=== PATIENT | male | born 1975 | race Two or more races ===

== ENCOUNTER 2017-04-09 09:22 | Emergency (ER) | payer MEDICAID ==
[~2017-04-09] VITALS: Ht 172.7 cm; Wt 149.2 kg
[2017-04-09 11:43] VITALS: BP 165/104
[2017-04-09] MEDS ORDERED: KETOROLAC TROMETH 60MG/2ML VIAL IM ONE (12:15)
== END 2017-04-09 12:44 | disposition home or self-care (01) ==
LOC: ER 09:22
DX: J34.1 Cyst and mucocele of nose and nasal sinus (principal); G44.009 Cluster headache syndrome, unspecified, not intractable
CPT/HCPCS: 70450; 93005; 96372; 99284; J1885

== ENCOUNTER 2017-09-24 04:49 | Emergency (ER) | payer MEDICAID ==
[~2017-09-24] VITALS: Ht 172.7 cm; Wt 154.2 kg
[2017-09-24 06:18] LABS: INR 1.02 (0.9-1.15); Partial Thromboplastin Time 28.9 sec (22.64-33.71); Prothrombin Time 11.1 sec (9.37-12.3)
[2017-09-24 06:28] LABS: Basophils # (auto) 0 uL; Basophils % (auto) 0.5 % (0.0-2.0); Eosinophils # (auto) 0.2 uL; Hematocrit 49.6 % (41.0-53.0); Hemoglobin 17.5 g/dL (13.5-17.5); Mean Corpuscular Hemoglobin 31.5 pg (28.0-32.0); Mean Corpuscular Hgb Conc. 35.3 g/dL (32.0-36.0); Mean Corpuscular Volume 89.1 fL (80.0-100.0); Monocytes # (auto) 0.6 uL; Monocytes % (auto) 9.8 % (0.0-12.0); Neutrophils # (auto) 3.5 uL; Neutrophils % (auto) 55.7 % (37.0-80.0); Nucleated Red Blood Cells % 0.3 %; Platelet Count (auto) 325 10^3/uL (140-450); Red Blood Cells 5.56 10^6/uL (4.5-5.90); Red Cell Distribution Width 13.2 % (11.8-14.3); White Blood Cell 6.3 10^3/uL (4.4-10.8)
[2017-09-24 06:29] LABS: Alanine Aminotransferase 51 U/L (16-61); Albumin 3.7 g/dL (3.4-5.0); Anion Gap 10 (5-15); Aspartate Aminotransferase 20 U/L (15-37); BUN/Creatinine Ratio 18.5; Blood Urea Nitrogen 15 mg/dL (7-18); Calcium 8.3 mg/dL (8.5-10.1); Carbon Dioxide 25 mmol/L (21-32); Chloride 106 mmol/L (98-107); GFR African American 134 mL/min; GFR Non-African American 111 mL/min; Glucose 112 mg/dL (74-106); Magnesium 2.1 mg/dL (1.6-2.6); Sodium 141 mmol/L (136-145)
[2017-09-24 06:34] LABS: Alkaline Phosphatase 61 U/L (45-117); Bilirubin, Total 0.4 mg/dL (0.2-1.0); Total Protein 7.8 g/dL (6.4-8.2)
[2017-09-24] MEDS ORDERED: LORazepam 0.5 MG TAB PO ONE ×2 (07:45)
[2017-09-24 08:22] VITALS: BP 142/92
== END 2017-09-24 11:03 | disposition home or self-care (01) ==
LOC: ER 04:49
DX: R07.89 Other chest pain (principal); R06.02 Shortness of breath; F17.210 Nicotine dependence, cigarettes, uncomplicated; R53.1 Weakness
CPT/HCPCS: 36415; 71046; 80053; 83735; 83880; 84484; 85025; 85610; 85730; 93005

== ENCOUNTER 2017-12-15 02:28 | Emergency (ER) | payer MEDICAID ==
[~2017-12-15] VITALS: Ht 172.7 cm; Wt 150.6 kg
[2017-12-15] MEDS ORDERED: cloNIDine HCL 0.1 MG TAB PO ONE (03:00)
[2017-12-15 03:24] LABS: Basophils # (auto) 0 uL; Basophils % (auto) 0.5 % (0.0-2.0); Eosinophils # (auto) 0.2 uL; Eosinophils % (auto) 3.2 % (0.0-7.0); Monocytes # (auto) 0.7 uL; Neutrophils # (auto) 4.1 uL
[2017-12-15 03:26] LABS: Hematocrit 51.4 % (41.0-53.0); Hemoglobin 17.9 g/dL (13.5-17.5); Lymphocytes # (auto) 2.5 uL; Lymphocytes % (auto) 33.2 % (10.0-50.0); Mean Corpuscular Hemoglobin 31.2 pg (28.0-32.0); Mean Corpuscular Hgb Conc. 34.7 g/dL (32.0-36.0); Mean Corpuscular Volume 89.8 fL (80.0-100.0); Neutrophils % (auto) 54.1 % (37.0-80.0); Nucleated Red Blood Cells % 0.1 %; Platelet Count (auto) 300 10^3/uL (140-450); Red Blood Cells 5.73 10^6/uL (4.5-5.90); White Blood Cell 7.6 10^3/uL (4.4-10.8)
[2017-12-15 03:41] LABS: Albumin 3.8 g/dL (3.4-5.0); BUN/Creatinine Ratio 16.5; Calcium 8.7 mg/dL (8.5-10.1); Potassium 4.2 mmol/L (3.5-5.1)
[2017-12-15 03:43] LABS: Bilirubin, Total 0.5 mg/dL (0.2-1.0); Total Protein 7.5 g/dL (6.4-8.2)
[2017-12-15 03:44] LABS: Alcohol, Urine < 3.0 mg/dL (0-5); Amphetamine Screen, Urine NEGATIVE (NEGATIVE); Barbiturate Scree,Urine NEGATIVE (NEGATIVE); Benzodiazephine Screen, Urine NEGATIVE (NEGATIVE); Cannabinoid Screen, Urine NEGATIVE (NEGATIVE); Cocaine Screen, Urine NEGATIVE (NEGATIVE); Opiate Scree,Urine NEGATIVE (NEGATIVE); Phencyclidine Screen, Urine NEGATIVE (NEGATIVE)
[2017-12-15 07:37] VITALS: BP 126/88
== END 2017-12-15 07:54 | disposition home or self-care (01) ==
LOC: ER 02:30
DX: I10 Essential (primary) hypertension (principal); E66.01 Morbid (severe) obesity due to excess calories; Z68.43 Body mass index [BMI] 50.0-59.9, adult
CPT/HCPCS: 36415; 70450; 80053; 80307; 83880; 84484; 85025; 93005

== ENCOUNTER 2018-01-04 03:41 | Emergency (ER) | payer MEDICAID ==
[~2018-01-04] VITALS: Ht 172.7 cm; Wt 158.8 kg
[2018-01-04] MEDS ORDERED: cloNIDine HCL 0.1 MG TAB ONE (03:49)
[2018-01-04] MEDS ORDERED: cloNIDine HCL 0.1 MG TAB PO ONE (04:15)
[2018-01-04 12:18] VITALS: BP 157/78
== END 2018-01-04 12:20 | disposition home or self-care (01) ==
LOC: ER 03:44
DX: I16.0 Hypertensive urgency (principal); F17.210 Nicotine dependence, cigarettes, uncomplicated; Z90.49 Acquired absence of other specified parts of digestive tract
CPT/HCPCS: 70450

== ENCOUNTER 2018-03-06 10:35 | Emergency (ER) | payer MEDICAID ==
[~2018-03-06] VITALS: Ht 172.7 cm; Wt 159.7 kg
[2018-03-06] MEDS ORDERED: methylPREDNISolone SOD SUCC 125 MG/2 ML VL IM ONE (11:00)
[2018-03-06] MEDS ORDERED: ACYCLOVIR 400 MG TAB PO ONE (11:00)
[2018-03-06] MEDS ORDERED: MORPHINE SULFATE 4 MG/ML SYR/VIAL IM ONE (11:00)
[2018-03-06] MEDS ORDERED: ONDANSETRON ODT 4 MG TAB PO ONE (11:00)
[2018-03-06] MEDS ORDERED: cloNIDine HCL 0.1 MG TAB PO ONE (11:00)
[2018-03-06] MEDS ORDERED: cloNIDine HCL 0.1 MG TAB ONE (11:10)
[2018-03-06 12:05] VITALS: BP 126/83
== END 2018-03-06 12:52 | disposition home or self-care (01) ==
LOC: ER 10:35
DX: G51.0 Bell's palsy (principal); I10 Essential (primary) hypertension
CPT/HCPCS: 70450; 93005; 96372; 99284; J2270; J2930; Q0162

== ENCOUNTER 2020-06-15 22:35 | Emergency (ER) | payer MEDICAID ==
[~2020-06-15] VITALS: Ht 175.3 cm; Wt 149.7 kg
[~2020-06-15 22:35] MED LIST: METO25TA93 PO
[2020-06-15] MEDS ORDERED: cloNIDine HCL 0.1 MG TAB PO ONE (22:45)
[2020-06-15 23:20] VITALS: BP 148/103
[2020-06-16] MEDS ORDERED: BENZOCAINE (DENTAL) 20 % SPRAY 60ML MT ONE (00:15)
== END 2020-06-16 02:00 | disposition home or self-care (01) ==
LOC: ER 22:36
DX: S02.5XXA Fracture of tooth (traumatic), initial encounter for closed fracture (principal); I10 Essential (primary) hypertension; K04.7 Periapical abscess without sinus; X58.XXXA Exposure to other specified factors, initial encounter; Y93.89 Activity, other specified; Y92.89 Other specified places as the place of occurrence of the external cause; Y99.8 Other external cause status

== ENCOUNTER 2020-06-30 21:43 | Emergency (ER) | payer MEDICAID ==
[~2020-06-30] VITALS: Ht 177.8 cm; Wt 152.0 kg
[2020-06-30 22:53] LABS: Basophils # (auto) 0 10 ^3/uL (0-0.2); Basophils % (auto) 0.5 % (0.0-2.0); Eosinophils # (auto) 0.3 10 ^3/uL (0-0.8); Eosinophils % (auto) 2.9 % (0.0-7.0); Hematocrit 46.9 % (41.0-53.0); Hemoglobin 16.7 g/dL (13.5-17.5); Lymphocytes # (auto) 2.7 10 ^3/uL (0.4-5.4); Lymphocytes % (auto) 31.1 % (10.0-50.0); Mean Corpuscular Hemoglobin 31.4 pg (28.0-32.0); Mean Corpuscular Hgb Conc. 35.6 g/dL (32.0-36.0); Mean Corpuscular Volume 88.3 fL (80.0-100.0); Monocytes # (auto) 0.7 10 ^3/uL (0-1.3); Monocytes % (auto) 8.6 % (0.0-12.0); Neutrophils # (auto) 4.9 10 ^3/uL (1.6-8.6); Neutrophils % (auto) 56.9 % (37.0-80.0); Nucleated Red Blood Cells % 0.3 %; Red Blood Cells 5.31 10^6/uL (4.5-5.90); Red Cell Distribution Width 13.5 % (11.8-14.3); White Blood Cell 8.6 10^3/uL (4.4-10.8)
[2020-06-30 23:05] LABS: Albumin 3.9 g/dL (3.4-5.0); Anion Gap 4 (5-15); Blood Urea Nitrogen 16 mg/dL (7-18); Calcium 8.9 mg/dL (8.5-10.1); Carbon Dioxide 30 mmol/L (21-32); Chloride 108 mmol/L (98-107); Glucose 143 mg/dL (74-106); Potassium 4.1 mmol/L (3.5-5.1); Sodium 142 mmol/L (136-145)
[2020-06-30 23:10] LABS: Alanine Aminotransferase 57 U/L (16-61); Alkaline Phosphatase 66 U/L (45-117); Aspartate Aminotransferase 22 U/L (15-37); BUN/Creatinine Ratio 15.2; Bilirubin, Total 0.3 mg/dL (0.2-1.0); GFR African American 98 mL/min; GFR Non-African American 81 mL/min; INR 1.02 (0.9-1.15); Partial Thromboplastin Time 28.9 sec (23.0-31.2); Total Protein 7.8 g/dL (6.4-8.2)
[2020-06-30 23:31] LABS: Urine Amorphous Crystal FEW /hpf (None Seen); Urine Bacteria FEW /hpf (None Seen); Urine Blood Negative /uL (Negative); Urine Mucus FEW (None Seen); Urine Specific Gravity 1.022 (1.001-1.035); Urine WBC <1 /hpf (0 - 3)
[2020-07-01 02:40] LABS: Alcohol, Urine < 3.0 mg/dL (0-10); Amphetamine Screen, Urine NEGATIVE (NEGATIVE); Barbiturate Scree,Urine NEGATIVE (NEGATIVE); Cannabinoid Screen, Urine NEGATIVE (NEGATIVE); Cocaine Screen, Urine NEGATIVE (NEGATIVE); Opiate Scree,Urine NEGATIVE (NEGATIVE); Phencyclidine Screen, Urine NEGATIVE (NEGATIVE)
[2020-07-01 02:56] LABS: Benzodiazephine Screen, Urine NEGATIVE (NEGATIVE)
[2020-07-01 03:00] VITALS: BP 135/89
== END 2020-07-01 03:17 | disposition home or self-care (01) ==
LOC: ER 21:45
DX: R07.89 Other chest pain (principal); K21.9 Gastro-esophageal reflux disease without esophagitis; I10 Essential (primary) hypertension; F17.210 Nicotine dependence, cigarettes, uncomplicated; Z90.49 Acquired absence of other specified parts of digestive tract
CPT/HCPCS: 36415; 71045; 80053; 80307; 81001; 83880; 84484; 85025; 85610; 85730; 93005

== ENCOUNTER 2021-02-20 10:15 | Emergency (ER) | payer MEDICAID ==
[~2021-02-20] VITALS: Ht 175.3 cm; Wt 116.1 kg
[2021-02-20 14:54] VITALS: BP 137/89
== END 2021-02-20 14:56 | disposition home or self-care (01) ==
LOC: ER 10:15
DX: N43.3 Hydrocele, unspecified (principal); I10 Essential (primary) hypertension; F17.210 Nicotine dependence, cigarettes, uncomplicated; Z90.49 Acquired absence of other specified parts of digestive tract; Z79.899 Other long term (current) drug therapy
CPT/HCPCS: 76870

== ENCOUNTER 2021-05-07 19:03 | Emergency (ER) | payer MEDICAID ==
[~2021-05-07] VITALS: Ht 175.3 cm; Wt 108.9 kg
[2021-05-07 20:14] LABS: Basophils # (auto) 0 10 ^3/uL (0-0.2); Basophils % (auto) 0.6 % (0.0-2.0); Eosinophils # (auto) 0.3 10 ^3/uL (0-0.8); Eosinophils % (auto) 4.3 % (0.0-7.0); Hematocrit 45.9 % (41.0-53.0); Lymphocytes # (auto) 2.7 10 ^3/uL (0.4-5.4); Mean Corpuscular Hemoglobin 30.7 pg (28.0-32.0); Mean Corpuscular Hgb Conc. 34.9 g/dL (32.0-36.0); Mean Corpuscular Volume 87.8 fL (80.0-100.0); Monocytes # (auto) 0.5 10 ^3/uL (0-1.3); Monocytes % (auto) 6.5 % (0.0-12.0); Neutrophils # (auto) 3.5 10 ^3/uL (1.6-8.6); Neutrophils % (auto) 50.6 % (37.0-80.0); Nucleated Red Blood Cells % 0.1 %; Red Blood Cells 5.23 10^6/uL (4.5-5.90); Red Cell Distribution Width 12.7 % (11.8-14.3)
[2021-05-07 20:31] LABS: Albumin 3.9 g/dL (3.4-5.0); Calcium 8.9 mg/dL (8.5-10.1); Potassium 4.6 mmol/L (3.5-5.1)
[2021-05-07 20:34] LABS: BUN/Creatinine Ratio 14.1; Bilirubin, Total 0.3 mg/dL (0.2-1.0); Total Protein 7.2 g/dL (6.4-8.2)
[2021-05-07 20:41] LABS: Urine Bacteria NONE SEEN /hpf (None Seen); Urine Blood Negative /uL (Negative); Urine Mucus FEW (None Seen); Urine Specific Gravity 1.008 (1.001-1.035); Urine WBC 1 /hpf (0 - 3)
[2021-05-08] VITALS: BP 134/92
== END 2021-05-08 00:46 | disposition home or self-care (01) ==
LOC: ER 19:03
DX: R10.33 Periumbilical pain (principal); I10 Essential (primary) hypertension; F17.210 Nicotine dependence, cigarettes, uncomplicated
CPT/HCPCS: 36415; 80053; 81001; 85025

== ENCOUNTER 2021-11-02 20:38 | Emergency (ER) | payer MEDICAID ==
[~2021-11-02] VITALS: Ht 172.7 cm; Wt 127.0 kg
[2021-11-02 22:05] LABS: Urine Bacteria NONE SEEN /hpf (None Seen); Urine Blood Negative /uL (Negative); Urine Mucus FEW (None Seen); Urine Specific Gravity 1.027 (1.001-1.035); Urine WBC <1 /hpf (0 - 3)
[2021-11-02 22:09] LABS: Basophils # (auto) 0 10 ^3/uL (0-0.2); Basophils % (auto) 0.3 % (0.0-2.0); Eosinophils # (auto) 0.3 10 ^3/uL (0-0.8); Eosinophils % (auto) 2.2 % (0.0-7.0); Hematocrit 45.3 % (41.0-53.0); Hemoglobin 16.2 g/dL (13.5-17.5); Lymphocytes # (auto) 2.3 10 ^3/uL (0.4-5.4); Lymphocytes % (auto) 17.9 % (10.0-50.0); Mean Corpuscular Hemoglobin 31.4 pg (28.0-32.0); Mean Corpuscular Hgb Conc. 35.8 g/dL (32.0-36.0); Mean Corpuscular Volume 87.5 fL (80.0-100.0); Monocytes # (auto) 0.9 10 ^3/uL (0-1.3); Neutrophils # (auto) 9.2 10 ^3/uL (1.6-8.6); Neutrophils % (auto) 72.6 % (37.0-80.0); Red Blood Cells 5.18 10^6/uL (4.5-5.90); Red Cell Distribution Width 12.8 % (11.8-14.3); White Blood Cell 12.6 10^3/uL (4.4-10.8)
[2021-11-02 22:22] LABS: BUN/Creatinine Ratio 12.8; Calcium 8.8 mg/dL (8.5-10.1); Potassium 4.2 mmol/L (3.5-5.1)
[2021-11-02 22:25] LABS: Bilirubin, Total 0.8 mg/dL (0.2-1.0); Total Protein 7.5 g/dL (6.4-8.2)
[2021-11-03 00:05] VITALS: BP 124/81
[2021-11-03] MEDS: DICYCLOMINE HCL (10MG/ML) 2 ML AMPULE IM ONE (00:18)
== END 2021-11-03 00:05 | disposition home or self-care (01) ==
LOC: ER 20:38
DX: R10.13 Epigastric pain (principal); I10 Essential (primary) hypertension; F17.210 Nicotine dependence, cigarettes, uncomplicated
CPT/HCPCS: 36415; 80053; 81001; 83690; 85025; 93005; 96372; 99284; J0500

== ENCOUNTER 2022-06-01 10:41 | Emergency (ER) | payer MEDICAID ==
[~2022-06-01] VITALS: Ht 175.3 cm; Wt 116.8 kg
[2022-06-01 11:06] LABS: Basophils # (auto) 0.1 10 ^3/uL (0-0.2); Basophils % (auto) 1.2 % (0.0-2.0); Eosinophils # (auto) 0.1 10 ^3/uL (0-0.8); Eosinophils % (auto) 1.7 % (0.0-7.0); Hematocrit 47.2 % (41.0-53.0); Hemoglobin 16.6 g/dL (13.5-17.5); Lymphocytes # (auto) 2.2 10 ^3/uL (0.4-5.4); Lymphocytes % (auto) 39.7 % (10.0-50.0); Mean Corpuscular Hemoglobin 30.7 pg (28.0-32.0); Mean Corpuscular Hgb Conc. 35.1 g/dL (32.0-36.0); Mean Corpuscular Volume 87.4 fL (80.0-100.0); Monocytes # (auto) 0.4 10 ^3/uL (0-1.3); Monocytes % (auto) 6.8 % (0.0-12.0); Neutrophils # (auto) 2.9 10 ^3/uL (1.6-8.6); Neutrophils % (auto) 50.6 % (37.0-80.0); Nucleated Red Blood Cells % 0.2 %; Red Cell Distribution Width 12.4 % (11.8-14.3); White Blood Cell 5.7 10^3/uL (4.4-10.8)
[2022-06-01 11:13] VITALS: BP 162/110
[2022-06-01 11:33] LABS: Potassium 4.2 mmol/L (3.5-5.1)
[2022-06-01 11:58] LABS: Albumin 4.2 g/dL (3.4-5.0); Bilirubin, Total 0.6 mg/dL (0.2-1.0); Calcium 9.3 mg/dL (8.5-10.1); Total Protein 7.1 g/dL (6.4-8.2)
[2022-06-01] MEDS ORDERED: PRED20TA2 PO (12:21)
[2022-06-01] MEDS ORDERED: IBU600T PO (12:21)
[2022-06-01] MEDS ORDERED: cloNIDine HCL 0.1 MG TAB PO ONE (12:30)
== END 2022-06-01 15:15 | disposition left against medical advice (07) ==
LOC: ER 10:41
DX: I10 Essential (primary) hypertension (principal); M54.10 Radiculopathy, site unspecified; R51.9 Headache, unspecified; F17.210 Nicotine dependence, cigarettes, uncomplicated
CPT/HCPCS: 36415; 70450; 80053; 84484; 85025

== ENCOUNTER 2022-06-11 08:58 | Emergency (ER) | payer MEDICAID ==
[~2022-06-11] VITALS: Ht 175.3 cm; Wt 114.0 kg
[~2022-06-11 08:58] MED LIST changes: +IBU600T PO; +PRED20TA2 PO
[2022-06-11 09:33] LABS: Basophils # (auto) 0 10 ^3/uL (0-0.2); Basophils % (auto) 0.4 % (0.0-2.0); Eosinophils # (auto) 0 10 ^3/uL (0-0.8); Eosinophils % (auto) 0.5 % (0.0-7.0); Hematocrit 49.6 % (41.0-53.0); Lymphocytes # (auto) 2.1 10 ^3/uL (0.4-5.4); Mean Corpuscular Hemoglobin 30.4 pg (28.0-32.0); Mean Corpuscular Hgb Conc. 34.3 g/dL (32.0-36.0); Mean Corpuscular Volume 88.6 fL (80.0-100.0); Monocytes # (auto) 0.5 10 ^3/uL (0-1.3); Monocytes % (auto) 5.8 % (0.0-12.0); Neutrophils # (auto) 5.5 10 ^3/uL (1.6-8.6); Neutrophils % (auto) 67.3 % (37.0-80.0); Red Cell Distribution Width 12.7 % (11.8-14.3); White Blood Cell 8.1 10^3/uL (4.4-10.8)
[2022-06-11 09:45] LABS: Albumin 4.2 g/dL (3.4-5.0); Calcium 9.2 mg/dL (8.5-10.1); Potassium 4.6 mmol/L (3.5-5.1)
[2022-06-11 09:48] LABS: BUN/Creatinine Ratio 18.3; Bilirubin, Total 0.6 mg/dL (0.2-1.0); Total Protein 7.4 g/dL (6.4-8.2)
[2022-06-11 11:30] VITALS: BP 131/92
== END 2022-06-11 11:32 | disposition home or self-care (01) ==
LOC: ER 08:58
DX: K43.9 Ventral hernia without obstruction or gangrene (principal); I10 Essential (primary) hypertension; F17.210 Nicotine dependence, cigarettes, uncomplicated; Z90.49 Acquired absence of other specified parts of digestive tract; Z79.1 Long term (current) use of non-steroidal anti-inflammatories (NSAID); Z79.899 Other long term (current) drug therapy
CPT/HCPCS: 36415; 74176; 80053; 83690; 84484; 85025

== ENCOUNTER 2022-06-14 20:29 | Emergency (ER) | payer MEDICAID ==
[~2022-06-14] VITALS: Ht 175.3 cm; Wt 114.0 kg
[2022-06-14 21:09] LABS: Basophils # (auto) 0 10 ^3/uL (0-0.2); Basophils % (auto) 0.3 % (0.0-2.0); Eosinophils # (auto) 0.2 10 ^3/uL (0-0.8); Eosinophils % (auto) 2.8 % (0.0-7.0); Hematocrit 45.8 % (41.0-53.0); Hemoglobin 15.7 g/dL (13.5-17.5); Lymphocytes # (auto) 2.8 10 ^3/uL (0.4-5.4); Lymphocytes % (auto) 43.3 % (10.0-50.0); Mean Corpuscular Hemoglobin 30.3 pg (28.0-32.0); Mean Corpuscular Hgb Conc. 34.3 g/dL (32.0-36.0); Mean Corpuscular Volume 88.3 fL (80.0-100.0); Monocytes # (auto) 0.6 10 ^3/uL (0-1.3); Monocytes % (auto) 8.5 % (0.0-12.0); Neutrophils % (auto) 45.1 % (37.0-80.0); Nucleated Red Blood Cells % 0.2 %; Red Blood Cells 5.19 10^6/uL (4.5-5.90); Red Cell Distribution Width 12.8 % (11.8-14.3); White Blood Cell 6.6 10^3/uL (4.4-10.8)
[2022-06-14 21:31] LABS: Calcium 8.5 mg/dL (8.5-10.1); Potassium 3.8 mmol/L (3.5-5.1)
[2022-06-14 21:34] LABS: BUN/Creatinine Ratio 15.5; Bilirubin, Total 0.4 mg/dL (0.2-1.0)
[2022-06-15 01:09] VITALS: BP 135/90
== END 2022-06-15 01:42 | disposition home or self-care (01) ==
LOC: ER 20:30
DX: R06.00 Dyspnea, unspecified (principal); I10 Essential (primary) hypertension; F17.210 Nicotine dependence, cigarettes, uncomplicated
CPT/HCPCS: 36415; 71046; 80053; 83880; 84484; 85025; 85379; 93005

== ENCOUNTER 2022-08-01 23:09 | Inpatient (IN) | payer MEDICAID ==
[~2022-08-01] VITALS: Ht 175.3 cm; Wt 113.1 kg
[2022-08-02 00:03] LABS: Basophils # (auto) 0 10 ^3/uL (0-0.2); Basophils % (auto) 0.5 % (0.0-2.0); Eosinophils # (auto) 0.2 10 ^3/uL (0-0.8); Eosinophils % (auto) 2.2 % (0.0-7.0); Hematocrit 47.5 % (41.0-53.0); Hemoglobin 16.4 g/dL (13.5-17.5); Lymphocytes % (auto) 33.7 % (10.0-50.0); Mean Corpuscular Hemoglobin 30.2 pg (28.0-32.0); Mean Corpuscular Hgb Conc. 34.5 g/dL (32.0-36.0); Mean Corpuscular Volume 87.7 fL (80.0-100.0); Monocytes # (auto) 0.7 10 ^3/uL (0-1.3); Monocytes % (auto) 7.6 % (0.0-12.0); Nucleated Red Blood Cells % 0.2 %; Red Blood Cells 5.42 10^6/uL (4.5-5.90); Red Cell Distribution Width 12.6 % (11.8-14.3); White Blood Cell 8.9 10^3/uL (4.4-10.8)
[2022-08-02 00:22] LABS: Albumin 3.9 g/dL (3.4-5.0); BUN/Creatinine Ratio 16.5; Calcium 8.8 mg/dL (8.5-10.1); Potassium 3.8 mmol/L (3.5-5.1)
[2022-08-02 00:25] LABS: Bilirubin, Total 0.6 mg/dL (0.2-1.0); Total Protein 7.2 g/dL (6.4-8.2)
[2022-08-02] MEDS ORDERED: ONDANSETRON HCL 4 MG/2 ML VIAL IV ONE ×2 (01:45→08:30)
[2022-08-02] MEDS ORDERED: HYDROmorphone HCL 2 MG/ML VL/or syr IV ONE ×2 (01:45→08:15)
[2022-08-02] MEDS ORDERED: LACTATED RINGER'S 1,000 ML IV ONE (01:45)
[2022-08-02] MEDS ORDERED: MORPHINE SULFATE INJ 2 MG/ml SYRG IV PRN (10:15)
[2022-08-02] MEDS ORDERED: NITROGLYCERIN 0.4 MG SL TAB SL PRN (10:15)
[2022-08-02] MEDS: D5W/SOD CHLO 0.9% 1,000 ML IV SCH ×2 (10:30→20:12)
[2022-08-02] MEDS ORDERED: GASTROGRAFIN 120 ML SOL ONE (10:56)
[2022-08-02] MEDS ORDERED: SODIUM CHLORIDE 0.9% 1,000 ML IV ONE (13:00)
[2022-08-02] MEDS: ONDANSETRON HCL 4 MG/2 ML VIAL IV PRN (15:30)
[2022-08-02] MEDS: MORPHINE SULFATE 4 MG/ML SYR/VIAL IV PRN (15:34)
[2022-08-02] MEDS ORDERED: HYDR1TAB97 PO (18:44)
[2022-08-02 22:08] VITALS: BP 136/79
[2022-08-02] MEDS: SODIUM CHLORIDE 0.9% 1,000 ML IV SCH (22:27)
[2022-08-03] MEDS: ONDANSETRON HCL 4 MG/2 ML VIAL IV PRN (03:55)
[2022-08-03] MEDS: MORPHINE SULFATE 4 MG/ML SYR/VIAL IV PRN (04:01)
[2022-08-03 04:49] VITALS: BP 134/87
[2022-08-03 05:50] LABS: Basophils # (auto) 0 10 ^3/uL (0-0.2); Basophils % (auto) 0.2 % (0.0-2.0); Eosinophils # (auto) 0 10 ^3/uL (0-0.8); Eosinophils % (auto) 0.5 % (0.0-7.0); Hematocrit 42.5 % (41.0-53.0); Hemoglobin 15.2 g/dL (13.5-17.5); Lymphocytes # (auto) 1.5 10 ^3/uL (0.4-5.4); Lymphocytes % (auto) 19.3 % (10.0-50.0); Mean Corpuscular Hemoglobin 31.4 pg (28.0-32.0); Mean Corpuscular Hgb Conc. 35.9 g/dL (32.0-36.0); Mean Corpuscular Volume 87.5 fL (80.0-100.0); Monocytes # (auto) 0.7 10 ^3/uL (0-1.3); Monocytes % (auto) 9.2 % (0.0-12.0); Neutrophils # (auto) 5.5 10 ^3/uL (1.6-8.6); Neutrophils % (auto) 70.8 % (37.0-80.0); Nucleated Red Blood Cells % 0.1 %; Red Blood Cells 4.86 10^6/uL (4.5-5.90); Red Cell Distribution Width 12.6 % (11.8-14.3); White Blood Cell 7.8 10^3/uL (4.4-10.8)
[2022-08-03 06:08] LABS: Albumin 3.4 g/dL (3.4-5.0); Calcium 8.2 mg/dL (8.5-10.1); Potassium 3.6 mmol/L (3.5-5.1)
[2022-08-03 06:10] LABS: BUN/Creatinine Ratio 18.8
[2022-08-03 06:13] LABS: Bilirubin, Total 0.8 mg/dL (0.2-1.0); Total Protein 6.5 g/dL (6.4-8.2)
[2022-08-03] MEDS: SODIUM CHLORIDE 0.9% 1,000 ML IV SCH (06:55)
[2022-08-03 08:00] VITALS: BP 142/94
[2022-08-03] MEDS ORDERED: ENOXAPARIN SOD 40 MG/0.4 ML SYRINGE SC SCH (10:00)
[2022-08-03] MEDS ORDERED: PANTOPRAZOLE 40 MG/10 ML VIAL INJ IV SCH (10:00)
[2022-08-03] MEDS ORDERED: ACETAMINOPHEN 500 MG TAB PO ONE (11:15)
[2022-08-03 12:00] VITALS: BP 145/95
[2022-08-03 12:27] VITALS: BP 142/94
== END 2022-08-03 14:45 | disposition home or self-care (01) | DRG 254 ==
LOC: ER 23:09 → OVERFLOW 08-02 10:24 → EAST 08-02 18:05
PROVIDERS: ADMIT Nurse Practitioner Family; ATTEND Nurse Practitioner Family
DX: K43.9 Ventral hernia without obstruction or gangrene (principal); E87.8 Other disorders of electrolyte and fluid balance, not elsewhere classified; E66.01 Morbid (severe) obesity due to excess calories; I10 Essential (primary) hypertension; R79.89 Other specified abnormal findings of blood chemistry; F17.210 Nicotine dependence, cigarettes, uncomplicated; Z82.3 Family history of stroke; Z68.36 Body mass index [BMI] 36.0-36.9, adult; Z82.49 Family history of ischemic heart disease and other diseases of the circulatory system; Z90.49 Acquired absence of other specified parts of digestive tract; Z98.84 Bariatric surgery status
CPT/HCPCS: 36415; 74176; 74250; 80053; 83605; 83690; 85025; 96374; 96375; 96376; C9113; G0378; J2405; J7042